=== PATIENT | female | born 1975 ===

== ENCOUNTER 2020-12-08 07:59 | Day surgery (SDC) | payer OTHER | END 2020-12-08 13:20 | disposition home or self-care (01) | LOC: AMB-ENDOS 07:59 | PROVIDERS: ATTEND Colon & Rectal Surgery | DX: K62.89 Other specified diseases of anus and rectum (principal); K64.2 Third degree hemorrhoids; Z20.828 Contact with and (suspected) exposure to other viral communicable diseases ==

== ENCOUNTER 2021-03-09 09:07 | Day surgery (SDC) | payer OTHER | END 2021-03-09 17:15 | disposition home or self-care (01) | LOC: AMB-ENDOS 09:07 | PROVIDERS: ATTEND Colon & Rectal Surgery | DX: D13.1 Benign neoplasm of stomach (principal); K44.9 Diaphragmatic hernia without obstruction or gangrene; Z20.822 Contact with and (suspected) exposure to COVID-19 ==